=== PATIENT | female | born 1975 | race Caucasian/White ===

== ENCOUNTER 2023-02-26 20:04 | Emergency (ER) | payer OTHER ==
[~2023-02-26] VITALS: Ht 162.6 cm; Wt 104.3 kg
[2023-02-26 20:36] VITALS: BP_SYST 145; PULSE 88; RESP 18; TEMP 98.3; O2SAT 100
[2023-02-26 22:02] LABS: BASOPHILS % (AUTO) 0.5 % (0.0-2.0); EOSINOPHILS # (AUTO) 0.1 K/uL (0.0-0.4); EOSINOPHILS % (AUTO) 1.5 % (0.0-4.0); HEMATOCRIT 26.7 % (36-48); HEMOGLOBIN 8.5 g/dL (12.0-16.0); LYMPHOCYTES # (AUTO) 2.3 K/uL (1.0-5.5); LYMPHOCYTES % (AUTO) 33.2 % (20.5-51.5); MEAN CORPUSCULAR HEMOGLOBIN 20 pg (27-31); MEAN CORPUSCULAR HGB CONC 32 % (32-36); MEAN CORPUSCULAR VOLUME 64 fL (79.0-98.0); MONOCYTES # (AUTO) 0.5 K/uL (0.0-1.0); NEUTROPHILS % (AUTO) 57.8 % (40.0-70.0); PLATELET COUNT (AUTO) 427 K/uL (130-430); RED BLOOD CELL COUNT(AUTO) 4.18 MIL/uL (4.2-6.2); RED CELL DISTRIBUTION WIDTH 17.4 % (9.0-15.0)
[2023-02-26 22:15] LABS: ANION GAP 10 (5-15); CALCIUM 8.6 mg/dL (8.4-11.0); CARBON DIOXIDE 25 mmol/L (23-29); CHLORIDE 102 mmol/L (98-107); CREATININE 0.74 mg/dL (0.55-1.30); GFR AFRICAN AMERICAN 109 mL/min (>90); GLUCOSE 118 mg/dL (74-106); POTASSIUM 3.7 mmol/L (3.5-5.1); SODIUM SERUM 137 mmol/L (136-145); UREA NITROGEN, BLOOD 15 mg/dL (8-21)
[2023-02-26 22:26] LABS: ALANINE AMINOTRANSFERASE 19 U/L (12-78); ALBUMIN 3.4 g/dL (3.4-4.8); ASPARTATE AMINOTRANSFERASE 8 U/L (10-37); TOTAL BILIRUBIN 0.2 mg/dL (0.0-1.0); TOTAL PROTEIN, SERUM 6.9 g/dL (6.4-8.3)
[2023-02-26 22:35] LABS: GFR NON AFRICAN-AMERICAN 90 mL/min (>90)
[2023-02-26 22:52] LABS: BILIRUBIN,DIRECT < 0.1 mg/dL (0.0-0.3)
[2023-02-26 23:23] LABS: PROTHROMBIN TIME 10.1 SECS (9.5-12.5)
[2023-02-26 23:49] LABS: ANISOCYTOSIS 1+; HYPOCHROMASIA 1+; OVALOCYTES FEW
[2023-02-27 00:03] VITALS: BP_SYST 145; PULSE 88; RESP 18; TEMP 98.3; O2SAT 100
== END 2023-02-27 01:11 | disposition home or self-care (01) ==
LOC: SED 20:04
DX: S20.01XA Contusion of right breast, initial encounter (principal); Z79.899 Other long term (current) drug therapy; X58.XXXA Exposure to other specified factors, initial encounter; Y93.89 Activity, other specified; Y92.89 Other specified places as the place of occurrence of the external cause; Y99.8 Other external cause status
CPT/HCPCS: 36415; 80048; 80076; 85025; 85610-TC; 85730-TC; 99283

== ENCOUNTER 2023-10-31 01:35 | Emergency (ER) | payer OTHER ==
[~2023-10-31] VITALS: Ht 162.6 cm; Wt 86.2 kg
[~2023-10-31 01:35] MED LIST: CLIN-142 PO; IBUP-1969 PO
[2023-10-31 01:53] VITALS: BP_SYST 158; PULSE 83; RESP 20; TEMP 98; O2SAT 97
[2023-10-31] MEDS: KETOROLAC TROMETHAMINE 60 MG/2 ML VIAL IM ONE (02:33)
[2023-10-31 03:00] LABS: BILIRUBIN,URINE NEGATIVE (NEGATIVE); BLOOD, URINE NEGATIVE (NEGATIVE); CLARITY/URINE CLEAR (CLEAR); COLOR,URINE YELLOW (YELLOW); GLUCOSE,URINE NEGATIVE (NEGATIVE); KETONES,URINE NEGATIVE (NEGATIVE); LEUKOCYTE ESTERASE ,URINE NEGATIVE (NEGATIVE); NITRITE, URINE NEGATIVE (NEGATIVE); PROTEIN URINE NEGATIVE (NEGATIVE); UROBILINOGEN,URINE 0.2 (0.2-1.0)
[2023-10-31] MEDS ORDERED: MORPHINE 4 MG INJ. 4 MG/ML VIAL IVP ONE (03:15)
[2023-10-31] MEDS ORDERED: NACL 0.9% 1,000 ML IV ONE (03:15)
[2023-10-31 05:28] VITALS: BP_SYST 158; PULSE 83; RESP 20; TEMP 98; O2SAT 97
== END 2023-10-31 03:40 | disposition left against medical advice (07) ==
LOC: SED 01:35
DX: R10.31 Right lower quadrant pain (principal); E11.9 Type 2 diabetes mellitus without complications; Z79.899 Other long term (current) drug therapy; Z79.2 Long term (current) use of antibiotics
CPT/HCPCS: 99283; 81001; 81025; 96372; 81003; J1885